=== PATIENT | male | born 1980 | race Caucasian/White ===

== ENCOUNTER 2019-02-07 20:29 | Emergency (ER) | payer MEDICAID ==
[~2019-02-07] VITALS: Ht 175.3 cm; Wt 81.6 kg
--- NOTE | 2019-02-07 20:33 | NUR ---
PT BIBRA/PD. C.O "SMOKED WEED, MAYBE LACED WITH SOMETHING" PT ALERT, COMBATIVE. AWARE.
[2019-02-07] MEDS ORDERED: LORAZEPAM INJ 2 MG/ML VIAL ONE ×2 (20:56→21:48)
[2019-02-07 21:20] LABS: BASOPHILS % (AUTO) 0.4 % (0.0-2.0); EOSINOPHILS % (AUTO) 0.3 % (0.0-6.0); HEMATOCRIT 40 % (39-51); HEMOGLOBIN 14.2 g/dL (13.5-17.5); LYMPHOCYTES # (AUTO) 2.2 /CMM (0.8-4.8); LYMPHOCYTES % (AUTO) 29.9 % (20.0-44.0); MEAN CORPUSCULAR HGB CONC 35 g/dl (31.0-36.0); MEAN CORPUSCULAR VOLUME 92 fL (80-96); MONOCYTES # (AUTO) 0.8 /CMM (0.1-1.30); MONOCYTES % (AUTO) 10.5 % (2.0-12.0); NEUTROPHILS # (AUTO) 4.4 /CMM (1.8-8.9); NEUTROPHILS % (AUTO) 58.9 % (43.0-81.0); PLATELET COUNT (AUTO) 184 /CMM (150-450); RED BLOOD CELL COUNT(AUTO) 4.36 MIL/uL (4.5-6.0); WHITE BLOOD COUNT (AUTO) 7.5 K/uL (4.3-11.0)
[2019-02-07 21:31] LABS: CALCIUM, SERUM 9.5 mg/dL (8.5-10.1); CARBON DIOXIDE 20 mmol/L (21-32); CHLORIDE 104 mmol/L (98-107); CREATININE 1.5 mg/dL (0.6-1.3); GLUCOSE 101 mg/dL (74-106); POTASSIUM 2.9 mmol/L (3.5-5.1); SODIUM SERUM 142 mmol/L (136-145); UREA NITROGEN, BLOOD 26 mg/dL (7-18)
[2019-02-07 21:37] LABS: ALANINE AMINOTRANSFERASE 29 U/L (12-78); ALKALINE PHOSPHATASE 62 U/L (46-116); ASPARTATE AMINOTRANSFERASE 36 U/L (15-37); BILIRUBIN,DIRECT 0.4 mg/dL (0.0-0.2); BILIRUBIN,TOTAL 1.6 mg/dL (0.2-1.0); TOTAL PROTEIN, SERUM 8.1 g/dL (6.4-8.2)
[2019-02-07 21:38] LABS: ACETAMINOPHEN < 10 ug/ml (10-30); ALCOHOL, BLOOD < 3 mg/dL (0-0); SALICYLATE 2.2 mg/dL (2.8-20.0)
[2019-02-07] MEDS: LORAZEPAM INJ 2 MG/ML VIAL IM ONE ×2 (21:39→22:44)
[2019-02-07] MEDS ORDERED: Magnesium 1GM/D5W 100ML PREMIX 100 ML IV ONE (21:43)
[2019-02-07] MEDS ORDERED: POTASSIUM CHLORIDE 20 MEQ TAB.PRT.SR PO ONE (21:43)
[2019-02-07] MEDS ORDERED: POTASSIUM CL. PREMIX PERIPHER. 50 ML ONE (21:43)
[2019-02-07] MEDS: IV NS 0.9% 1,000 ML BAG IV ONE (22:44)
[2019-02-07] MEDS: POTASSIUM CL. PREMIX PERIPHER. 50 ML IV SCH (22:44)
[2019-02-07] MEDS: Magnesium 1GM/D5W 100ML PREMIX 100 ML IV SCH (22:44)
[2019-02-07] MEDS: POTASSIUM CHLORIDE 20 MEQ TAB.PRT.SR PO ONE (22:44)
[2019-02-08 02:07] VITALS: BP 132/71
== END 2019-02-08 02:08 | disposition home or self-care (01) ==
LOC: ER 20:45
DX: F41.9 Anxiety disorder, unspecified (principal); F19.10 Other psychoactive substance abuse, uncomplicated; E87.6 Hypokalemia; E86.0 Dehydration; F32.9 Major depressive disorder, single episode, unspecified; R00.0 Tachycardia, unspecified; R41.82 Altered mental status, unspecified; R45.1 Restlessness and agitation; Z60.2 Problems related to living alone
CPT/HCPCS: 36415; 70450; 80048; 80076; 80307; 80329; 85025; 96365; 96366; 96368; 96372 ×2; 99284; G0480; J2060 ×2; J3475; J3480